=== PATIENT | male | born 1955 | race Caucasian/White ===

== ENCOUNTER 2016-11-11 16:37 | Emergency (ER) | payer OTHER ==
[~2016-11-11] VITALS: Ht 182.9 cm; Wt 86.0 kg
[~2016-11-11 16:37] MED LIST: GLUCTAB7 PO; HYDR-5688 PO; MULT-506 PO; VITAMIN D PO
[2016-11-11 16:42] VITALS: TEMP 36.7; Ht 182.9 cm; Wt 86.0 kg
[2016-11-11] MEDS ORDERED: XYLOCAINE 1%/SOD BICARB 20 ML VIAL INFIL ONE (17:15)
[2016-11-11] MEDS ORDERED: CHOL100027 PO (17:29)
[2016-11-11] MEDS ORDERED: GLUCTAB7 PO ×2 (17:29)
[2016-11-11] MEDS ORDERED: DIPHTHERIA/TETANUS/PERTUSSIS 0.5 ML SYR/VIAL IM. ONE (18:00)
[2016-11-11 18:31] VITALS: BP 133/88; PULSE 88; O2SAT 99
--- NOTE | 2016-11-12 00:29 | EMERGENCY ROOM VISIT NOTE ---
History First contact with patient: 16:53 Chief Complaint: LACERATION/CUT (NON-SUTURE) Stated Complaint: CUT ON INSIDE LEG BY KNEE Nursing Triage Summary: laceration to inner left thigh. History of Present Illness The patient is a 61 year old male who presents to the Emergency Room with complaints of a laceration to the left inner knee after accidentally cutting his knee with a utility knife. The patient denies any significant bleeding or pain. Tetanus immunization is uncertain. Review of Systems 10 system review was performed and was negative except for pertinent positives and negatives as indicated in history of present illness Past Medical/Surgical History Medical Problems: (1) Anxiety State Nos (2) Ulcerative Colitis, Unspecified Surgical Problems: (1) No history of previous surgery Family History Unremarkable Social History Smoking Status: Never Smoker Alcohol Use: occasionally Marital Status: Housing Status: lives with family Occupation Status: employed Current/Historical Medications Scheduled Cholecalciferol (Vitamin D 1000 Unit), 1,000 INTER.UNIT PO DAILY Kaktphrczoj-Lritgdihapx-Kvb C- (Glucosamine Chondroitin), 2 TABS PO QAM Cyhcsjgsczk-Coqfmgkmsos-Uib C- (Glucosamine Chondroitin), 1 TAB PO QPM Multivitamin (Multivitamin), 1 TAB PO BID Physical Exam Vital Signs Date Time Temp Pulse Resp B/P (MAP) Pulse Ox O2 Delivery O2 Flow Rate FiO2 11/11/16 18:31 88 18 133/88 99 11/11/16 16:42 36.7 92 18 154/88 99 Physical Exam CONSTITUTIONAL: Healthy and well nourished. Alert and oriented X 3 with positive affect. Patient does not appear in any acute distress. HEENT: Normocephalic, atraumatic. Pupils equal, round and reactive. NECK: Full active range of motion without discomfort. MUSCULOSKELETAL: Examination of the left medial knee shows a 5.5 cm linear laceration without active bleeding or hematoma formation. The patient has no worsening pain or instability with stress on the knee. There is no joint effusion. Distal pulses are intact. INTEGUMENTARY: No rash or other significant dermatologic conditions noted. NEUROLOGIC: No focal neurologic deficits noted. Medical Decision & Procedures Medications Administered Medications (Trade) Dose Ordered Sig/Kerry Route Start Time Stop Time Status Last Admin Dose Admin Diphtheria/ Pertussis/Tetanus Vacc (Adacel Inj) 0.5 ml ONCE ONCE IM. 11/11/16 18:00 11/11/16 18:01 DC 11/11/16 18:14 0.5 ML Procedure Laceration repair was performed under local anesthesia after receiving verbal consent from the patient. Using buffered 1% lidocaine without epinephrine, good local anesthesia was administered. The wound was then peripherally cleansed with iodine, then the wound was copiously pressure irrigated with 250 mL of normal saline. Exploration of the wound shows a palpable and visible base without any obvious involvement of the underlying joint capsule, tendons or vasculature. The wound was then approximated using 4-0 nylon simple interrupted sutures 10. A bacitracin dressing was applied. ED Course Patient history and physical exam were performed. Nurse's notes were reviewed. Vital signs were reviewed and were normal. I did have our [employer] review coordinator PCP records, showing that the patient has had no documented immunizations on file. The patient was administered Adacel IM. Laceration repair was performed under local anesthesia. The patient was provided additional verbal and written wound care instructions. Ice for swelling. Ibuprofen or Tylenol as needed for pain. Suture removal in 12-14 days, or seek reevaluation sooner for any signs of wound infection. The patient was happy with plan of care, voiced understanding of all discharge instructions, and denied any pain at the time of discharge. Medical Decision Medication Reconcilliation Current Medication List: was personally reviewed by me Blood Pressure Screening Patient's blood pressure: Normal blood pressure Impression Primary Impression: Laceration of left knee Departure Information Dispostion Home / Self-Care Forms HOME CARE DOCUMENTATION FORM, IMPORTANT VISIT INFORMATION Patient Instructions My [facility] Additional Instructions Keep wound clean and dry. Do not allow any crusting or dried blood to accumulate on sutures. If this occurs, use a 1:1 solution of hydrogen peroxide/ water on a Q-tip to clean the wound. Use an antibiotic ointment for 3-4 days, then let wound dry. Suture removal in 12-14 days. Return sooner for any signs of infection (increasing redness, swelling, drainage). Ice and elevate for swelling and pain. Ibuprofen 600 mg and/or Tylenol 1000 mg every 6 hrs as needed for pain. Problem Qualifiers Primary Impression: Laceration of left knee Encounter type: initial encounter Qualified Codes: S81.012A - Laceration without foreign body, left knee, initial encounter
== END 2016-11-11 18:35 | disposition home or self-care (01) ==
LOC: C.EDB 16:38 → C.EDD 18:35
DX: S81.012A Laceration without foreign body, left knee, initial encounter (principal); W26.0XXA Contact with knife, initial encounter; F41.9 Anxiety disorder, unspecified; Z23 Encounter for immunization

== ENCOUNTER → 2017-03-17 | Outpatient (CLI) | payer OTHER ==
[~2017-03-17] MED LIST changes: +CHOL100027 PO; -HYDR-5688 PO; -VITAMIN D PO
[2017-03-17 13:29] LABS: BLOOD UREA NITROGEN 16 mg/dl (7-18); CALCIUM 9.6 mg/dl (8.5-10.1); CARBON DIOXIDE 30 mmol/L (21-32); CHOLESTEROL 205 mg/dl (0-200); CREATININE 0.93 mg/dl (0.60-1.40); GLUCOSE 157 mg/dl (70-99); POTASSIUM 4.3 mmol/L (3.5-5.1); SODIUM 135 mmol/L (136-145)
[2017-03-17 13:35] LABS: LDL CHOLESTEROL CALCULATED 125 mg/dl
[2017-03-17 13:38] LABS: HEMOGLOBIN A1C 6.7 % (4.5-5.6)
== END | disposition home or self-care (01) ==
LOC: C.LABPVFM 08:02
PROVIDERS: ATTEND Nurse Practitioner Adult Health
DX: Z00.00 Encounter for general adult medical examination without abnormal findings (principal); Z12.5 Encounter for screening for malignant neoplasm of prostate; R73.09 Other abnormal glucose

== ENCOUNTER → 2017-03-29 | Outpatient (CLI) | payer OTHER ==
[2017-03-29 14:36] LABS: ALBUMIN 3.9 gm/dl (3.4-5.0); ALT/SGPT 49 U/L (12-78); AST/SGOT 23 U/L (15-37); BLOOD UREA NITROGEN 21 mg/dl (7-18); CALCIUM 9.2 mg/dl (8.5-10.1); CARBON DIOXIDE 31 mmol/L (21-32); GLUCOSE 171 mg/dl (70-99); POTASSIUM 4.7 mmol/L (3.5-5.1); SODIUM 139 mmol/L (136-145)
[2017-03-29 14:38] LABS: ALKALINE PHOSPHATASE 96 U/L (45-117); TOTAL PROTEIN 7.4 gm/dl (6.4-8.2)
== END | disposition home or self-care (01) ==
LOC: C.LABBC 10:52
PROVIDERS: ATTEND Nurse Practitioner Adult Health
DX: E78.5 Hyperlipidemia, unspecified (principal)

== ENCOUNTER → 2017-05-21 | Outpatient (CLI) | payer OTHER ==
--- NOTE | 2017-05-21 15:30 | DIAGNOSTIC IMAGING REPORT ---
L UPPER EXT JOINT WITHOUT CLINICAL HISTORY: 61 years-old Male presenting with LT SHOULDER PAIN, pain for a few weeks, history of steroid injection. TECHNIQUE: Multisequence, multiplanar MR imaging of the left shoulder was performed without the use of intravenous contrast. IV contrast: None. COMPARISON: None. FINDINGS: Localizer images: Unremarkable. Bony cystic change noted at the lesser tuberosity medial to the insertion of the subscapularis. Mild bony edema in the distal clavicle last the acromioclavicular joint. Articular cartilage thinning along the inferior humeral head. Similar thinning of the inferior glenoid fossa cartilage. Prominent some labral sulcus noted in the anterior superior labrum. No convincing evidence of a labral tear. Biceps labral complex intact. Long head of the biceps tendon intact and well seated within the intertubercular groove. Short head of the biceps tendon intact. Long head of the triceps tendon intact. Complete tear of the supraspinatus tendon with fraying of the distal fibers and proximal retraction measuring over 1 cm. Partial undersurface tear of the anterior fibers of the infraspinatus suspected. Teres minor tendon intact. Subscapularis tendon including the transverse ligament component intact. Degenerative changes with osteophytosis and minimal joint fluid at the acromioclavicular joint. Small shoulder joint effusion. Trace fluid in the subacromial subdeltoid bursa. Mild fatty atrophy of the teres minor muscle belly. Remaining muscles demonstrate normal muscle bulk and signal intensity. IMPRESSION: 1. Complete tear of the supraspinatus tendon with over 1 cm of proximal retraction of the frayed distal tendon fibers. 2. Partial undersurface tear of the anterior fibers of the infraspinatus. 3. Articular cartilage thinning at the inferior glenohumeral joint. 4. Degenerative changes of the acromioclavicular joint. 5. Small shoulder joint effusion. Electronically signed by: Deondre Pruitt M.D. 05/21/2017 3:28 PM Dictated Date/Time: 05/21/2017 3:21 PM
== END | disposition home or self-care (01) ==
LOC: C.MRIBC 14:40
PROVIDERS: ATTEND Orthopaedic Surgery
DX: M75.102 Unspecified rotator cuff tear or rupture of left shoulder, not specified as traumatic (principal); M19.012 Primary osteoarthritis, left shoulder; M25.412 Effusion, left shoulder